=== PATIENT | female | born 1945 | race Caucasian/White ===

== ENCOUNTER 2017-05-20 07:09 | Day surgery (SDC) | payer OTHER ==
[2017-05-20 07:55] LABS: URINE APPEARANCE CLEAR; URINE BILIRUBIN NEGATIVE (NEGATIVE); URINE BLOOD 3+ (NEGATIVE); URINE COLOR LT. YELLOW; URINE GLUCOSE (UA) NEGATIVE (NEGATIVE); URINE KETONE NEGATIVE (NEGATIVE); URINE NITRITE NEGATIVE (NEGATIVE); URINE UROBILINOGEN 0.2 mg/dL (0.2-1.0)
[2017-05-20 07:56] LABS: URINE LEUK ESTERASE 1+ (NEGATIVE); URINE PROTEIN 1+ (NEGATIVE)
[2017-05-20 08:23] LABS: URINE RBC 6 /hpf (0-3); URINE WBC 45 /hpf (3-5)
[2017-05-20] MEDS ORDERED: LIDOCAINE HCL 1%, 10 MG/ML (20ML VIAL) ONE (09:24)
[2017-05-20] MEDS ORDERED: ROPIVACAINE HCL 0.5% 30ML VIAL ONE (09:24)
[2017-05-20] MEDS ORDERED: DEXAMETHASONE SOD PHOSPHATE/PF 10 MG/ML SDV ONE (09:24)
[2017-05-20] MEDS ORDERED: MIDAZOLAM HCL 2 MG/2 ML SINGLE DOSE VIAL ONE ×2 (09:26)
[2017-05-20] MEDS ORDERED: PROPOFOL 20 ML ONE ×2 (10:26)
[2017-05-20] MEDS ORDERED: ceFAZolin SODIUM 1 GM VIAL IVPB ONE (10:29)
[2017-05-20] MEDS ORDERED: LIDOCAINE HCL 1%, 10 MG/ML (50 mL VIAL) IJ ONE (10:35)
[2017-05-20] MEDS ORDERED: oxyCODONE HCL 5 MG TABLET PO PRN (11:01)
[2017-05-20] MEDS ORDERED: ONDANSETRON 4 MG/2 ML VIAL IVPUSH PRN (11:01)
[2017-05-20] MEDS ORDERED: LACTATED RINGERS SOLUTION 1,000 ML IV SCH (11:15)
[2017-05-20 11:53] VITALS: TEMP 97.5
[2017-05-20 13:26] VITALS: BP 139/60; PULSE 65
--- NOTE | 2017-05-20 19:34 | OP ---
DATE OF OPERATION: DATE OF DICTATION: 05/20/2017 PREOPERATIVE DIAGNOSIS: Left breast intraductal papilloma. POSTOPERATIVE DIAGNOSIS: Left breast intraductal papilloma. PROCEDURE: Left breast, wide localized excisional biopsy. SURGEON: Teresa Casas M.D. ANESTHESIA: Local, IV sedation, and paravertebral block. ESTIMATED BLOOD LOSS: Minimal. COMPLICATIONS: None. This is a sterile procedure. INDICATION FOR PROCEDURE: Patient presented, had a mammogram and ultrasound. The ultrasound noted 2 nodules in the left retroareolar area and the left 12 o'clock and 4 o'clock. Both of these were core biopsied, the left breast 12 o'clock location nodule 4 cm from the nipple showed portion of an intraductal papilloma, and my recommendation was an excision. The procedure was discussed with all the questions answered. PROCEDURE IN DETAIL: Patient brought to [facility] and taken to breast imaging, where a wire was used to localize the S-clip in the left breast 12 o'clock location, 4 cm from the nipple, by the radiologist. She was then brought up to the operating room, where after paravertebral block as well as an IV sedation and, IV antibiotics, the left breast was prepped and draped in the usual sterile fashion. The area of the upper left breast was anesthetized with injected with 1% lidocaine without epinephrine. A curvilinear incision was made in the left 12 o'clock location and the wire was used as a guide to get down to the area of interest. This was excised en bloc, and sent for specimen radiograph, as a left breast excisional biopsy. The specimen radiograph showed the clip and wire to be intact within the specimen; this was then sent to pathology for permanent section. Hemostasis assured with electrocautery. The parenchyma was approximated with interrupted 2-0 Vicryl, skin approximated with interrupted 3-0 Vicryl, running 4-0 Prolene. A sterile dressing with Tegaderm and 4x4s was applied. She tolerated procedure well, was taken to recovery in good condition. TERESA CASAS M.D. TATA/[id number]
--- NOTE | 2017-05-23 15:31 | PATH ---
Surgical Pathology Report Patient Name: PAULETTE MA [facility]. Rec. #: [id number] /Age/Gender: 1945 (Age: 72) / F Account: [id number] Location: [facility] SURGICAL Taken: 05/20/2017 Received: 05/20/2017 Reported: 05/23/2017 Physicians: Teresa Gilmore M.D. 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 NO INVASIVE CARCINOMA IDENTIFIED. PRIOR BIOPSY SITE CHANGES IDENTIFIED. SURGICAL RESECTION MARGINS: INTRACYSTIC PAPILLARY CARCINOMA IS COMPLETELY EXCISED; DCIS FOCALLY ABUTS CAUTERIZED RESECTION MARGIN. SURROUNDING BREAST TISSUE: FIBROCYSTIC CHANGE WITH FOCAL ADENOSIS, DUCT DILATATION, CYSTS FORMATION AND STROMAL FIBROSIS WITH ASSOCIATED MICROCALCIFICATIONS; CALCIFICATIONS IN VASCULAR VINES. PATHOLOGIC STAGING: REFER TO CHECKLIST BELOW. RECEPTOR STATUS: REFER TO CHECKLIST BELOW. Comment: Immunohistochemical stains for SMM-HC and p63 performed and interpreted on block #3 and [facility] showed loss of myoepithelial cells in the intracystic papillary carcinoma. The case was discussed with Dr. Gilmore on 05/22/17. Comments DCIS of Breast: Surgical Pathology Cancer Case Summary Based on AJCC/UICC TNM, 7th edition Procedure _x_ Excision with image-guided localization Lymph Node Sampling _x_ None Specimen Laterality _x_ Left Estimated size (extent) of DCIS:Intracystic papillary carcinoma: 0.6 cm Number of blocks with DCIS: 2; greatest extent on slide: 4 mm Number of blocks examined: 12 Nuclear Grade _x_ Grade I (low) _x_ Grade II (intermediate) Necrosis _x_ Not identified Microcalcifications _x_ Present in non-neoplastic tissue Margins _x_ Margins positive for DCIS: DCIS focally abuts inked cauterized resection margin Pathologic Staging (pTNM) Primary Tumor (pT): pTis(DCIS) Regional Lymph Nodes (pN): pNX Distant Metastasis (pM): not applicable Biomarker Studies Results of ER and WV studies performed on blocks #3 and #5 at [facility] are as follows: ER (clone [id number] mouse monoclonal antibody by [employer]): >95% nuclear staining with strong intensity (Positive). WV (clone16 mouse monoclonal antibody by [employer]): ~90% nuclear staining with strong to moderate intensity (Positive). Positive and negative controls (internal if applicable) show appropriate results. Formalin fixation and cold ischemic times are within current ASCO/CAP recommendations for ER, WV and Her2 testing. Electronically Signed Eloy Lopez M.D. Gross Description Received fresh on an AccuGrid labeled "left breast excisional biopsy" is a 5.4 x 3.0 x 1.7 cm irregular, unoriented portion of fibroadipose tissue with a needle localization wire present. There is no skin or nipple present. The specimen is inked blue and serially sectioned. Sectioning reveals a focus of hemorrhage, consistent with a previous biopsy site. The hemorrhage is surrounded by dense, white, focally firm fibrous tissue. No definitive mass is identified. The specimen is entirely and sequentially submitted in 12 cassettes (previous biopsy site in cassettes 2-6). Time to fixation: <1h Total formalin fixation time: ~6h 05/20/201705/20/2017
== END 2017-05-20 13:15 | disposition home or self-care (01) ==
LOC: EDBD 07:09 → JASU-SURG 07:09
PROVIDERS: ATTEND Surgery
PROC: 0HBU0ZX Excision of Left Breast, Open Approach, Diagnostic (ICD-10-PCS; principal; 2017-05-20 10:00)
DX: D24.2 Benign neoplasm of left breast (principal)
CPT/HCPCS: 19281; 81003; 81015; 88307-TC; 88341-TC; 88342-TC; 94760

== ENCOUNTER 2017-07-05 09:12 | Day surgery (SDC) | payer OTHER ==
[2017-07-05 09:32] VITALS: BMI 25.4
[2017-07-05] MEDS ORDERED: LIDOCAINE HCL 1%, 10 MG/ML (20ML VIAL) ONE (12:55)
[2017-07-05] MEDS ORDERED: PROPOFOL 20 ML ONE (13:07)
[2017-07-05] MEDS ORDERED: MIDAZOLAM HCL 2 MG/2 ML SINGLE DOSE VIAL ONE (13:07)
[2017-07-05] MEDS ORDERED: ceFAZolin SODIUM 1 GM VIAL IVPB ONE (13:25)
[2017-07-05] MEDS ORDERED: LIDOCAINE HCL 1%, 10 MG/ML (50 mL VIAL) IJ ONE (13:28)
[2017-07-05] MEDS ORDERED: DEXAMETHASONE SOD PHOSPHATE 4 MG/1 ML VIAL ONE (13:30)
[2017-07-05] MEDS ORDERED: ONDANSETRON 4 MG/2 ML VIAL ONE (13:30)
[2017-07-05] MEDS ORDERED: ceFAZolin SODIUM 1 GM VIAL ONE (13:30)
[2017-07-05] MEDS ORDERED: ONDANSETRON 4 MG/2 ML VIAL IVPUSH PRN (13:40)
[2017-07-05] MEDS ORDERED: oxyCODONE HCL 5 MG TABLET PO PRN (13:40)
[2017-07-05] MEDS ORDERED: LACTATED RINGERS SOLUTION 1,000 ML IV SCH (13:45)
--- NOTE | 2017-07-05 16:37 | OP ---
DATE OF OPERATION: 07/05/2017 PREOPERATIVE DIAGNOSIS: Left breast ductal carcinoma in situ. POSTOPERATIVE DIAGNOSIS: Left breast ductal carcinoma in situ. PROCEDURE: Left breast lumpectomy. SURGEON: Teresa Gilmore M.D. ANESTHESIA: Local IV sedation. ESTIMATED BLOOD LOSS: Minimal. COMPLICATIONS: None. DISPOSITION: Stable. INDICATION FOR PROCEDURE: Patient had a biopsy that showed intraductal papilloma in the upper left breast. I did an excision on this area that showed papillary ductal carcinoma in situ. completion lumpectomy for better margins. The procedure was discussed with her, and all the questions were answered. PROCEDURE IN DETAIL: The patient was brought to [facility], taken into the operating room, and after IV sedation and IV antibiotics, and the left breast was prepped and draped in the usual sterile fashion. The area on the upper left breast was anesthetized with 1% lidocaine without epinephrine. A prior incision was sharply incised and opened, and a complete lumpectomy was performed of the area where I had done an excision. This was tired with a long stitch lateral, short stitch superior, sent to pathology for permanent section. Hemostasis was assured with electrocautery. The parenchyma approximated with interrupted 2-0 Vicryl, skin approximated with interrupted 3-0 Vicryl running 4-0 Prolene. A sterile dressing with Steri-Strip, Tegaderm, 4x4s was applied. She tolerated the procedure well and left the operating room in good condition. [place] SIERRA/[id number]
[2017-07-05 18:07] VITALS: PULSE 62
[2017-07-05 18:16] VITALS: BP 130/70; TEMP 98
--- NOTE | 2017-07-10 15:00 | PATH ---
Surgical Pathology Report Patient Name: PAULETTE MA [facility]. Rec. #: [id number] /Age/Gender: 1945 (Age: 72) / F Account: [id number] Location: [facility] SURGICAL Taken: 07/05/2017 Received: 07/08/2017 Reported: 07/10/2017 Physicians: Teresa Gilmore M.D. Specimen(s) Received LEFT BREAST LUMPECTOMY Clinical History Left ductal carcinoma in situ Final Diagnosis BREAST, LEFT, LUMPECTOMY: FOCAL RESIDUAL DUCTAL CARCINOMA IN SITU (DCIS), LOW NUCLEAR GRADE, CRIBRIFORM AND PAPILLARY TYPES, WITH MICROCALCIFICATIONS; DCIS IS PRESENT ON 2 OF 15 EXAMINED SLIDES WITH THE GREATEST EXTENT ON ONE SLIDE OF 3 MM. SURGICAL RESECTION MARGINS: DCIS IS 0.7 MM (<1.0 MM) FROM THE DEEP MARGIN OF RESECTION. EXTENSIVE PRIOR SURGICAL SITE CHANGES PRESENT. SURROUNDING BREAST TISSUE WITH FIBROCYSTIC CHANGE WITH FOCLA USUAL AND PAPILLARY DUCTAL HYPERPLASIA, FOCAL ADENOSIS, FOCAL COLUMNAR CELL CHANGE AND STROMAL FIBROSIS WITH FOCAL ASSOCIATED MICROCALCIFICATIONS. Comment: Immunohistochemical stain for ER performed and interpreted at [facility] on block 12 is strongly positive, supporting DCIS. Refer to [id number] for the prior excision results. Electronically Signed Eloy Lopez M.D. Gross Description Received in formalin, labeled "left breast lumpectomy" is a 4.8 x 4.3 x 2.7 cm. bender-yellow, irregular, portion of fibroadipose tissue. There is a short suture marking the superior aspect and a long suture marking the lateral aspect, per the surgeon. There is no needle localization wire present. There is no skin or nipple present. The specimen is inked as follows: superior and lateral -blue; inferior -green; medial -yellow; anterior -red; deep -black. The specimen is serially sectioned from medial to lateral. Sectioning reveals a focus of hemorrhage, consistent with a previous biopsy site. The biopsy site is surrounded by abundant dense, white, firm fibrous tissue and fat necrosis. No definitive mass is identified. The specimen is entirely and sequentially submitted in 15 cassettes as follows: 1-medial margin; 3-76-etbvptcitdtk submitted breast parenchyma from medial to lateral (one full face bisected section each in cassettes 3/4, 5/6, 7/8, 9/, 11/12, 13/14); 15-lateral margin. Time to fixation: not indicated. Total formalin fixation time: ~74h 07/08/201707/08/2017
== END 2017-07-05 18:16 | disposition home or self-care (01) ==
LOC: JASU-SURG 09:12
PROVIDERS: ATTEND Surgery
PROC: 0HBU0ZZ Excision of Left Breast, Open Approach (ICD-10-PCS; principal; 2017-07-05 12:00)
DX: D05.12 Intraductal carcinoma in situ of left breast (principal)
CPT/HCPCS: 88307-TC; 88342-TC; 94760